=== PATIENT | female | born 1965 | race Caucasian/White ===

== ENCOUNTER 2017-10-02 06:21 | Day surgery (SDC) | payer OTHER ==
[2017-10-01 11:32] VITALS: BMI 23.6
[2017-10-02] VITALS (18 sets, daily range): BP systolic 143–171; BP diastolic 72–88; PULSE 78–94; RESP 11–19; Ht 149.9 cm; Wt 54.7 kg
[~2017-10-02] VITALS: Ht 149.9 cm; Wt 54.7 kg
--- NOTE | 2017-10-02 05:34 | HPN ---
Date/Time of Note Date/Time of Note DATE: 10/02/17 TIME: 05:34 Interval H&P Admission Note Pt. seen H&P reviewed: No system changes GUERRERO HUTCHINS MD Oct 02, 2017 05:34
[~2017-10-02 06:21] MED LIST: DEXAMETHASONE 1 MG TAB PO ONE; GABAPENTIN 300 MG CAP PO ONE; SERT50TA PO; SUMA25TA34 PO; traMADol 50 MG TAB PO ONE
[2017-10-02] MEDS ORDERED: TRAZ50TA18 PO (07:06)
[2017-10-02] MEDS ORDERED: BUPIVACAINE 0.5%/EPI (SDV) 30 ML INJ ONE (07:21)
[2017-10-02] MEDS ORDERED: FENTAnyl 50 MCG/ML VIAL ONE (08:30)
[2017-10-02] MEDS ORDERED: SUCCINYLCHOLINE CHLORIDE 100 MG/5 ML SYG IV ONE (08:30)
[2017-10-02] MEDS ORDERED: LIDOCAINE 2% (SDV) 5 ML INJ ONE (08:30)
[2017-10-02] MEDS ORDERED: MIDAZOLAM 1 MG/ML 2 ML INJ ONE (08:30)
[2017-10-02] MEDS ORDERED: PROPOFOL 20 ML ONE (08:30)
[2017-10-02] MEDS ORDERED: ROCURONIUM 50 MG INJ ONE (08:30)
[2017-10-02] MEDS ORDERED: ROPIVACAINE 0.5 % 30 ML VIAL ONE (08:31)
[2017-10-02] MEDS ORDERED: CEFAZOLIN 1 GM INJ ONE (09:36)
[2017-10-02] MEDS ORDERED: DEXAMETHASONE 4 MG/ML 1 ML INJ ONE (09:38)
[2017-10-02] MEDS ORDERED: ONDANSETRON 4 MG INJ ONE (09:38)
--- NOTE | 2017-10-02 10:18 | PDOCDIS ---
Discharge Instructions DIAGNOSIS Discharge Diagnosis Calcific tendinitis of the left shoulder CONDITION Patient Condition: Good HOME CARE INSTRUCTIONS: Diet Instructions: Regular ACTIVITY: Activity Restrictions: Slowly Increase Activity Keep Limb Elevated Bathing Restrictions: Shower FOLLOW UP/APPOINTMENTS Follow-up Plan 2 weeks SCHOOL/WORK RELEASE May return to School/Work with: With Restrictions School/Work Release Comment: Use sling for comfort for the next 2 weeks GUERRERO HUTCHINS MD Oct 02, 2017 10:18
--- NOTE | 2017-10-02 10:22 | OPR ---
Date/Time of Note Date/Time of Note DATE: 10/02/17 TIME: 10:19 Operative Report Procedure Date: Oct 02, 2017 Preoperative Diagnosis Left shoulder calcific tendinitis Postoperative Diagnosis 1. Left shoulder calcific tendinitis 2. Left shoulder labral tearing Operation/Procedure Performed Left shoulder arthroscopy with extensive debridement of glenohumeral joint and subacromial space. Surgeon see signature line Resource Development Director Wilfred Lovett MD Anesthesia Type: general Estimated Blood Loss: minimal Transfusion none Specimen None Grafts/Implants none Complications none Procedure Description Resource Development Director surgeon: Wilfred Lovett MD was asked to be present at my request as a result of the complexity associated with procedure including positioning of the extremity and manipulation of the arthroscope. In my opinion, the assistance offered by a surgical garment assembler is insufficient and Dr. Lovett should be compensated for his time. Procedure in detail: Following the administration of general endotracheal anesthesia the patient was then placed in the right lateral decubitus position and all prominences were padded including an axillary fold. The arm was then placed in 10 pounds of balanced traction. Sterile prep and drape was then undertaken. Anterior and posterior glenohumeral portals were then established. The superior labrum had extensive tearing from the 10:00 to the 3 o'clock position with a type I SLAP lesion there was no bairon detachment of the biceps tendon and the biceps tendon was then pulled into the joint with no significant synovitis. The rotator cuff appeared intact. The glenoid and humeral cartilage appeared intact. The joint was then thoroughly debrided specifically, the superior labrum was then debrided from the 10:00 to the 3 o'clock position with no significant residual degenerative tissue. The subacromial space was then entered and the subacromial bursal reactive tissue was then debrided. The undersurface of the rotator cuff appeared intact with the exception of a small area of calcific tissue over the lateral aspect of the supraspinatus measuring about 1 x 1 cm. This area was debrided down to stable tissue. The joint was then thoroughly irrigated the portals were closed using 4-0 Monocryl suture sterile dressing and a sling. The patient was then awakened and transported to recovery in stable condition tolerance to do all thank you GUERRERO HUTCHINS MD Oct 02, 2017 10:22
[2017-10-02] MEDS ORDERED: LABETALOL HCL 20MG INJ IV PRN (11:00)
[2017-10-02] MEDS ORDERED: FENTAnyl 50 MCG/ML VIAL IV PRN (11:00)
[2017-10-02] MEDS ORDERED: PROCHLORPERAZINE 10 MG INJ IV PRN (11:00)
[2017-10-02] MEDS ORDERED: HYDROmorphONE (0.2 MG/ML) 10ML SYG IV PRN (11:00)
[2017-10-02] MEDS ORDERED: DIPHENHYDRAMINE 50 MG INJ IV PRN (11:00)
[2017-10-02] MEDS ORDERED: hydrALAzine 20 MG INJ IV PRN (11:00)
[2017-10-02] MEDS ORDERED: ONDANSETRON 4 MG INJ IV PRN (11:00)
== END 2017-10-02 13:00 | disposition home or self-care (01) ==
LOC: SDS 06:21
PROVIDERS: ATTEND Orthopaedic Surgery
DX: M75.42 Impingement syndrome of left shoulder (principal); M75.102 Unspecified rotator cuff tear or rupture of left shoulder, not specified as traumatic; Z53.9 Procedure and treatment not carried out, unspecified reason
CPT/HCPCS: J0690; J1100; J1170; J2250; J2405; J2795; J3010; Z7512; Z7610